=== PATIENT | male | born 1970 | race Two or more races ===

== ENCOUNTER 2016-10-19 15:22 | Emergency (ER) | payer OTHER ==
[~2016-10-19] VITALS: Ht 170.2 cm; Wt 95.3 kg
[2016-10-19 15:34] VITALS: BP 140/97
[2016-10-19] MEDS ORDERED: CYCL10TA2 PO (15:42)
[2016-10-19] MEDS ORDERED: TRAM50TA PO (15:42)
[2016-10-19] MEDS ORDERED: FLUT9.9S NS (15:42)
[2016-10-19] MEDS ORDERED: AMOX1TAB61 PO (15:42)
[2016-10-19] MEDS ORDERED: NAPR500T PO (15:42)
--- NOTE | 2016-10-19 15:43 | PHYS DOC ---
Adult General Chief Complaint Chief Complaint: LOWER EXT PAIN [facility] HPI Patient is a 46 year old male presents to the ED with c/o right lower back and extremity pain as well as sinus infection for one month. 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 He states he has pain in the low right back and radiates down to the right hip. No loss of bowel or bladder control no loss function lower extremity. Patient also states for one month he's had a sinus congestion with yellow nasal discharge. He denies sore throat, denies fever, denies cough. States he is a smoker. Does not use drugs or alcohol. Review of Systems Review of Systems Constitutional: Denies fever or chills [] Eyes: Denies change in visual acuity, redness, or eye pain [] HENT: Congestion with yellow discharge. Respiratory: Denies cough or shortness of breath [] Cardiovascular: No additional information not addressed in HPI [] GI: Denies abdominal pain, nausea, vomiting, bloody stools or diarrhea [] : Denies dysuria or hematuria [] Musculoskeletal: Right low back pain radiating to the right hip. Integument: Denies rash or skin lesions [] Neurologic: Denies headache, focal weakness or sensory changes [] Endocrine: Denies polyuria or polydipsia [] Allergies Allergies Allergies Coded Allergies Type Severity Reaction Last Updated Verified No Known Drug Allergies 10/19/16 No Physical Exam Physical Exam Constitutional: Well developed, well nourished, no acute distress, non-toxic appearance. [] HENT: Normocephalic, atraumatic, bilateral external ears normal, bilateral tympanic membranes with effusion, oropharynx moist, no oral exudates, nose and anterior turbinates swollen, yellow nasal discharge. Eyes: PERRLA, EOMI, conjunctiva normal, no discharge. [] Neck: Normal range of motion, no tenderness, supple, no stridor. [] Cardiovascular:Heart rate regular rhythm, no murmur [] Lungs & Thorax: Bilateral breath sounds clear to auscultation [] Abdomen: Bowel sounds normal, soft, no tenderness, no masses, no pulsatile masses. [] Skin: Warm, dry, no erythema, no rash. [] Back: Mild tenderness of the right lumbar region into the right sacroiliac crest and right lateral hip. Negative straight raise leg test. No saddle anesthesia. Extremities: No tenderness, no cyanosis, no clubbing, ROM intact, no edema. Muscle strength is 5 over 5, DTRs 2 over 4[] Neurologic: Alert and oriented X 3, normal motor function, normal sensory function, no focal deficits noted. [] Psychologic: Affect normal, judgement normal, mood normal. [] EKG EKG [] Radiology/Procedures Radiology/Procedures [] Course & Med Decision Making Course & Med Decision Making Pertinent Labs and Imaging studies reviewed. (See chart for details) [] Dragon Disclaimer Dragon Disclaimer This electronic medical record was generated, in whole or in part, using a voice recognition dictation system. Departure Departure Impression: Primary Impression: Sciatica Additional Impression: Sinus infection Disposition: 01 HOME, SELF-CARE Condition: STABLE Referrals: NON,STAFF (PCP) [facility] Patient Instructions: Sciatica, Sinusitis, Smoking Cessation Additional Instructions: Weight restriction of 7 pounds for 10 days. Avoid bending at the waist, pushing , pulling. Scripts Tramadol Hcl (TRAMADOL HCL) 50 Mg Tablet 50 MG PO Q6H Y for PAIN, #15 TAB 0 Refills Prov: JONN FIGUEROA APRN 10/19/16 Fluticasone Propionate (Flonase Allergy Relief) 9.9 Ml [place].susp 2 SPRAYS NS DAILY, #1 BOTTLE Prov: JONN FIGUEROA APRN 10/19/16 Amoxicillin/Potassium Clav (AUGMENTIN 875-125 TABLET) 1 Each Tablet 1 TAB PO BID, #20 TAB Prov: JONN FIGUEROA APRN 10/19/16 Naproxen (NAPROSYN) 500 Mg Tablet 500 MG PO BID, #20 TAB Prov: JONN FIGUEROA APRN 10/19/16 Cyclobenzaprine Hcl (CYCLOBENZAPRINE HCL) 10 Mg Tablet 10 MG PO TID Y for MUSCLE SPASMS, #30 TAB Prov: JONN FIGUEROA APRN 10/19/16 Problem Qualifiers Primary Impression: Sciatica Laterality: right Qualified Codes: M54.31 - Sciatica, right side Additional Impression: Sinus infection Sinusitis location: maxillary Chronicity: acute Recurrence: non-recurrent Qualified Codes: J01.00 - Acute maxillary sinusitis, unspecified JONN FIGUEROA APRN Oct 19, 2016 15:43
== END 2016-10-19 15:47 | disposition home or self-care (01) ==
LOC: ER 15:22
DX: J01.00 Acute maxillary sinusitis, unspecified (principal); M54.41 Lumbago with sciatica, right side; M25.551 Pain in right hip
CPT/HCPCS: 99283